=== PATIENT | male | born 1965 | race Caucasian/White ===

== ENCOUNTER → 2020-08-15 | Outpatient (CLI) | payer BC ==
--- NOTE | 2020-08-15 13:21 | XR ---
EXAMINATION TYPE: XR KUB DATE OF EXAM: 08/15/2020 COMPARISON: NONE HISTORY: Hematuria TECHNIQUE: One view abdominal series FINDINGS: The osseous structures are intact. The bowel gas pattern is nonspecific. Degenerative change lower l umbar spine. Hypertrophic change of the acetabulum could be associated with femoral acetabular imping ement. Retained fecal debris throughout the colon. No suspicious calcifications identified. Question unilateral right-sided spondylolysis L5. IMPRESSION: 1. Correlate for constipation.
--- NOTE | 2020-08-15 13:53 | CT ---
EXAMINATION TYPE: CT abdomen pelvis wo con DATE OF EXAM: 08/15/2020 COMPARISON: X-ray 08/15/2020 HISTORY: Hematuria, Renal stone CT DLP: 652 mGycm Automated exposure control for dose reduction was used. TECHNIQUE: Helical acquisition of images was performed from the lung bases through the pelvis. FINDINGS: LUNG BASES: No significant abnormality is appreciated. LIVER/GB: No significant abnormality is appreciated. PANCREAS: No significant abnormality is seen. SPLEEN: No significant abnormality is seen. ADRENALS: No significant abnormality is seen. KIDNEYS: There is mild to moderate right hydronephrosis. There is a mid right ureteral calculus at th e level of L5-S1 measuring a diameter of 4.4 mm. There is no other calcification seen. There are indeterminate lesions involving the upper and lower p ole the right kidney too small to characterize measuring subcentimeter in size. Ultrasound could be p erformed. ADENOPATHY: None visualized. OSSEOUS STRUCTURES: Multilevel degenerative disc disease noted. Congenital limbus deformity of L3. BOWEL: Bowel gas pattern nonspecific with no obstruction. Appendix not visualized. No inflammatory c hange in the right lower quadrant. OTHER: Aorta of normal caliber. No free fluid or free air. Mild concentric wall thickening of the amando dder. Prostate calcifications noted. IMPRESSION: 1. Mild to moderate right hydronephrosis secondary to 4.4 mm obstructing right midureteral calculus. 2. Mild bladder wall thickening correlate with urinalysis for cystitis. 3. Indeterminate right renal lesions. Follow-up ultrasound suggested.
== END | disposition home or self-care (01) ==
LOC: RADCTMAIN 12:57
PROVIDERS: ATTEND Nurse Practitioner
DX: N13.2 Hydronephrosis with renal and ureteral calculous obstruction (principal); N32.89 Other specified disorders of bladder
CPT/HCPCS: 74018; 74176